=== PATIENT | female | born 1995 | race Caucasian/White ===

== ENCOUNTER 2016-09-12 01:32 | Outpatient (CLI) | payer OTHER ==
[~2016-09-12] VITALS: Ht 160 cm; Wt 73.0 kg
[~2016-09-12 01:32] MED LIST: PRENTAB65 PO; SODI1TAB PO
[2016-09-12 02:31] VITALS: Ht 160 cm; Wt 73.0 kg
[2016-09-12 02:50] LABS: URINE APPEARANCE CLEAR (CLEAR); URINE BILIRUBIN NEG (NEG); URINE COLOR YELLOW; URINE EPITHELIAL CELL AUTO 0-5 /lpf (0-5); URINE NITRITE NEG (NEG); URINE PH 6.5 (4.5-7.5); UROBILINOGEN NEG (NEG); ZZUR CULT IF INDIC CLEAN CATCH NO
[2016-09-12 02:56] LABS: MANUAL MICROSCOPIC REQUIRED? NO; REVIEW REQ? NO
--- NOTE | 2016-09-21 06:31 | EDITING REQUIRED CODING QUERY ---
DIAGNOSIS NEEDED To promote full compliance with coding requirements relating to patient care, physician participation is requested in all cases of windows security analyst uncertainty. Please assist us with the question(s) below: Coding Question: The patient received care in labor and delivery on 09/12/16 as noted within the record. Please document the diagnosis that is being addressed by the medication/treatment. Provider Response: DIAGNOSIS: Thank you for your assistance, Elizabeth Mahmood - Parent Aide
== END 2016-09-12 03:40 | disposition home or self-care (01) ==
LOC: C.OPB 01:32 → C.LD 01:32 → C.OPB 03:40
PROVIDERS: ATTEND Obstetrics & Gynecology
DX: O26.893 Other specified pregnancy related conditions, third trimester (principal); R10.2 Pelvic and perineal pain; Z3A.34 34 weeks gestation of pregnancy

== ENCOUNTER 2016-10-26 12:11 | Outpatient (CLI) | payer OTHER ==
[~2016-10-26] VITALS: Ht 160 cm; Wt 78.2 kg
[2016-10-26 12:30] VITALS: Ht 160 cm; Wt 78.2 kg
--- NOTE | 2016-10-26 14:26 | Progress Note ---
Progress Note Date of Service Oct 26, 2016. Progress Note Pt is a 21yo at 40.6 weeks gestation Pt has hx of Ventricular Tachycardia and see Dr Westbrook. Pt had an appt with sourcing engineer for recommendation but was rescheduled and so pt never saw cardiology Today she is here for labor induction sat 40.6 weeks and a phone call made to cardiology recommends she have cardiac monitoring thru labor. we are unable to provide that monitoring here so she is scheduled to have her induction tomorrow at [facility] discussed recommendation with pt and family arrangement is made for her and spouse tostay overnight at the [facility] because of an impending snow storm FHR; Cat1
--- NOTE | 2016-10-26 14:27 | Discharge Instructions ---
Discharge Instructions Date of Service Oct 26, 2016. Admission Reason for Admission: NST Discharge Discharge Diagnosis / Problem: pregnacy Discharge Goals Goal(s): Continuing OB care Activity Recommendations Activity Limitations: as noted below SPECIAL CARE INSTRUCTIONS: Call Doctor if: * Regular contractions every 5 minutes or greater than contractions in one hour. * Bleeding * Water breaks or is leaking * Decreased movement * Fever >100.4 degrees F * Pain not relieved by routine measures or pain medication ordered. FOLLOW UP VISIT: Return to Labor and Delivery on for /call for appointment time . Follow-up Visit with: When: . Current Hospital Diet Patient's current hospital diet: Discharge Diet Recommended Diet: Regular Diet Pending Studies Studies pending at discharge: no Medical Emergencies . Who to Call and When: Medical Emergencies: If at any time you feel your situation is an emergency, please call 911 immediately. . Non-Emergent Contact Non-Emergency issues call your: Specialist . . "Provider Documentation" section prepared by Reese Mares. VTE Core Measure Inpt VTE Proph given/why not?: Treatment not indicated
== END 2016-10-26 14:20 | disposition home or self-care (01) ==
LOC: C.LD 12:11 → UNDOADMIN 12:11 → C.LD 12:11 → C.OPB 12:11 → EDSTATUS 13:40 → C.OPB 14:20
PROVIDERS: ATTEND Obstetrics & Gynecology
DX: O99.411 Diseases of the circulatory system complicating pregnancy, first trimester (principal); I47.2 Ventricular tachycardia; Z3A.40 40 weeks gestation of pregnancy

== ENCOUNTER 2017-09-14 07:51 | Emergency (ER) | payer OTHER ==
[~2017-09-14] VITALS: Ht 160 cm; Wt 66.0 kg
[2017-09-14 07:58] VITALS: Ht 160 cm; Wt 66.0 kg
[2017-09-14] MEDS ORDERED: IBUPROFEN 600 MG TAB PO STA (09:00)
[2017-09-14] MEDS ORDERED: SODIUM CHLORIDE 0.9% 1000ML 1,000 ML IV STA (09:00)
--- NOTE | 2017-09-14 09:41 | DIAGNOSTIC IMAGING REPORT ---
CHEST ONE VIEW PORTABLE CLINICAL HISTORY: Fever and chest pain. COMPARISON STUDY: Chest radiograph May 14, 2017. FINDINGS: Lung volumes are normal. No pneumothorax or pleural effusion is noted. Pulmonary vascularity is normal. Cardiac size is normal. Mediastinal contours are normal. IMPRESSION: No acute cardiopulmonary findings. Electronically signed by: Asim Soni M.D. 09/14/2017 9:40 AM Dictated Date/Time: 09/14/2017 9:40 AM
[2017-09-14 09:44] LABS: HEMATOCRIT 35.1 % (37-47); HEMOGLOBIN 12.2 g/dL (12.0-16.0); IG# 0.04 K/uL (0.00-0.02); LYMPH ABS # 0.62 K/uL (1.2-3.4); MEAN CELL VOLUME 88.4 fL (80-100); MEAN CORPUSCULAR HEMOGLOBIN 30.7 pg (25-34); MEAN CORPUSCULAR HGB CONC 34.8 g/dl (32-36); MEAN PLATELET VOLUME 10.8 fL (7.4-10.4); MONO % 4.4 %; MONO ABS # 0.68 K/uL (0.11-0.59); NEUT % 91.3 %; NEUT ABS # 14.26 K/uL (1.4-6.5); PLATELET COUNT 240 K/uL (130-400); RED CELL DISTRIBUTION WIDTH CV 15.2 % (11.5-14.5); RED CELL DISTRIBUTION WIDTH SD 49.8 fL (36.4-46.3)
[2017-09-14 10:01] LABS: CALCIUM 8.9 mg/dl (8.5-10.1); CREATININE 0.65 mg/dl (0.60-1.20); POTASSIUM 3.5 mmol/L (3.5-5.1)
[2017-09-14 10:13] LABS: INFLUENZA B ANTIGEN Neg for Influ B (NEG)
[2017-09-14 10:45] VITALS: TEMP 37.1
--- NOTE | 2017-09-14 11:01 | EMERGENCY ROOM VISIT NOTE ---
History Report prepared by Shilpa: Fausto Castro Under the Supervision of: Dr. Nnio Holland D.O. First contact with patient: 08:52 Chief Complaint: ILLNESS Stated Complaint: CHEST PAIN/SYNCOPE History of Present Illness The patient is a 22 year old female who presents to the Emergency Room with complaints of weakness that began this morning. She has a past medical history of ventricular tachycardia that occurred 11 years ago. She received a heart catheterization for possible ablation without further treatment secondary to it never recurring. Earlier this week, the patient began to experience a non- productive cough with intermittent sneezing. Her symptoms then progressed into a fever with body aches. 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 She states she "collapsed" because of her weakness. She did not injure herself in anyway or hit her head. She is currently nauseated and mildly dizzy. She was given Zofran via EMS. She denies any vomiting, abdominal pain, or numbness. She received a echocardiogram earlier this month that was negative. Source of History: patient Onset: this morning Position: other (global) Symptom Intensity: moderate Quality: other (generalized weakness) Timing: constant Associated Symptoms: + fevers, + sorethroat, + cough, + nausea, No LOC, No vomiting, No abdominal pain, No numbness Review of Systems See HPI for pertinent positives & negatives. A total of 10 systems reviewed and were otherwise negative. Past Medical & Surgical Medical Problems: (1) Abdominal pain (2) (3) Ventricular tachycardia (paroxysmal) (4) Vomiting Surgical Problems: (1) No history of previous surgery Family History Diabetes mellitus MOTHER FH: heart disease FATHER Hypertension FATHER MOTHER Social History Smoking Status: Never Smoker Alcohol Use: none Drug Use: none Housing Status: lives with significant other Occupation Status: student Current/Historical Medications No Active Prescriptions or Reported Meds Allergies Coded Allergies: Tramadol (Verified Adverse Reaction, Intermediate, nausea, 09/14/17) Physical Exam Vital Signs Date Time Temp Pulse Resp B/P (MAP) Pulse Ox O2 Delivery O2 Flow Rate FiO2 09/14/17 11:08 96 09/14/17 10:45 37.1 96 20 129/67 98 Room Air 09/14/17 09:17 115 16 110/69 97 Room Air 09/14/17 07:58 38.1 115 16 137/79 97 Room Air 09/14/17 07:58 127 Physical Exam CONSTITUTIONAL/VITAL SIGNS: Reviewed / noted above. GENERAL: Non-toxic in appearance. INTEGUMENTARY: Warm, dry, and [place]. HEAD: Normocephalic. EYES: without scleral icterus or trauma. ENT/OROPHARYNX: clear and moist. LYMPHADENOPATHY/NECK: Is supple without lymphadenopathy or meningismus. RESPIRATORY: Lungs clear and equal. CARDIOVASCULAR: Tachycardic rate with a regular rhythm. GI/ABDOMEN: Soft and nontender. No organomegaly or pulsatile mass. No rebound or guarding. Normal bowel sounds. EXTREMITIES: Warm and well perfused. BACK: No CVA tenderness. NEUROLOGICAL: Intact without focal deficits. PSYCHIATRIC: normal affect. MUSCULOSKELETAL: Normally developed with good muscle tone. Medical Decision & Procedures ER Provider Diagnostic Interpretation: Radiology results as stated below per my review and radiologist interpretation: CHEST ONE VIEW PORTABLE CLINICAL HISTORY: Fever and chest pain. COMPARISON STUDY: Chest radiograph May 14, 2017. FINDINGS: Lung volumes are normal. No pneumothorax or pleural effusion is noted. Pulmonary vascularity is normal. Cardiac size is normal. Mediastinal contours are normal. IMPRESSION: No acute cardiopulmonary findings. Electronically signed by: Asim Soni M.D. 09/14/2017 9:40 AM Dictated Date/Time: 09/14/2017 9:40 AM Laboratory Results 09/14/17 09:33 Red Blood Count 3.97, Mean Corpuscular Volume 88.4, Mean Corpuscular Hemoglobin 30.7, Mean Corpuscular Hemoglobin Concent 34.8, Mean Platelet Volume 10.8, Neutrophils (%) (Auto) 91.3, Lymphocytes (%) (Auto) 4.0, Monocytes (%) (Auto) 4.4, Eosinophils (%) (Auto) 0.0, Basophils (%) (Auto) 0.0, Neutrophils # (Auto) 14.26, Lymphocytes # (Auto) 0.62, Monocytes # (Auto) 0.68, Eosinophils # (Auto) 0.00, Basophils # (Auto) 0.00 09/14/17 09:33 Test 09/14/17 09:15 09/14/17 09:33 Influenza Type A Antigen Neg for Influ A (NEG) Influenza Type B Antigen Neg for Influ B (NEG) White Blood Count 15.60 K/uL (4.8-10.8) Red Blood Count 3.97 M/uL (4.2-5.4) Hemoglobin 12.2 g/dL (12.0-16.0) Hematocrit 35.1 % (37-47) Mean Corpuscular Volume 88.4 fL (80-100) Mean Corpuscular Hemoglobin 30.7 pg (25-34) Mean Corpuscular Hemoglobin Concent 34.8 g/dl (32-36) Platelet Count 240 K/uL (130-400) Mean Platelet Volume 10.8 fL (7.4-10.4) Neutrophils (%) (Auto) 91.3 % Lymphocytes (%) (Auto) 4.0 % Monocytes (%) (Auto) 4.4 % Eosinophils (%) (Auto) 0.0 % Basophils (%) (Auto) 0.0 % Neutrophils # (Auto) 14.26 K/uL (1.4-6.5) Lymphocytes # (Auto) 0.62 K/uL (1.2-3.4) Monocytes # (Auto) 0.68 K/uL (0.11-0.59) Eosinophils # (Auto) 0.00 K/uL (0-0.5) Basophils # (Auto) 0.00 K/uL (0-0.2) RDW Standard Deviation 49.8 fL (36.4-46.3) RDW Coefficient of Variation 15.2 % (11.5-14.5) Immature Granulocyte % (Auto) 0.3 % Immature Granulocyte # (Auto) 0.04 K/uL (0.00-0.02) Anion Gap 7.0 mmol/L (3-11) Est Creatinine Clear Calc Drug Dose 121.8 ml/min Estimated GFR () 144.0 Estimated GFR (Non- 124.3 BUN/Creatinine Ratio 15.1 (10-20) Calcium Level 8.9 mg/dl (8.5-10.1) Laboratory results as stated above per my review. Medications Administered Medications (Trade) Dose Ordered Sig/Shiva Route Start Time Stop Time Status Last Admin Dose Admin Sodium Chloride 1,000 ml @ 999 mls/hr Q1H1M STAT IV 09/14/17 09:00 09/14/17 10:00 DC 09/14/17 09:00 999 MLS/HR Ibuprofen (Motrin Tab) 600 mg NOW STAT PO 09/14/17 09:00 09/14/17 09:03 DC 09/14/17 09:25 600 MG ECG Indication: nausea Rate (beats per minute): 119 Rhythm: sinus tachycardia Findings: no acute ischemic change, no ectopy Change: ECG interpreted by me ED Course 0852: Previous medical records were reviewed. The patient was evaluated in room B6. A complete history and physical examination was performed. 0900: Ordered Motrin Tab 600 mg PO, Sodium Chloride 1000 ml @ 999 mls/hr IV 1105: On reevaluation, the patient is resting. I discussed the results and findings with the patient. She verbalized agreement of the treatment plan. She was discharged home. Medical Decision Differential includes viral illness, influenza, streptococcal pharyngitis, meningitis, pneumonia, sinusitis, UTI, pyelonephritis, and otitis media. This is a 22-year-old female who presents to the ED with a chief complaint of nausea, dizziness, weakness, body aches, cough,sneezing, sore throat and fever for the past 24-36 hours. The patient has a fever here today 38.1. She is tachycardic with a heart rate of 115. EKG shows a sinus tach. White blood cell count is 15.6. PRP was normal. Chest x-ray did not show acute disease and a flu swab was negative. The patient's symptoms are consistent with a viral syndrome. She was given ibuprofen here as well as IV fluids. 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 Medication Reconcilliation Current Medication List: was personally reviewed by me Blood Pressure Screening Patient's blood pressure: Normal blood pressure Blood pressure disposition: Did not require urgent referral Impression Primary Impression: Flu-like symptoms Scribe Attestation The scribe's documentation has been prepared under my direction and personally reviewed by me in its entirety. I confirm that the note above accurately reflects all work, treatment, procedures, and medical decision making performed by me. Departure Information Dispostion Home / Self-Care Prescriptions No Active Prescriptions or Reported Meds Referrals Joselin Valdez M.D. (PCP) Forms HOME CARE DOCUMENTATION FORM, IMPORTANT VISIT INFORMATION, WORK / SCHOOL INSTRUCTIONS Patient Instructions My [facility] Additional Instructions Drink plenty of fluids. Get plenty of rest. Take [id number] cold and flu medicine for symptoms. Follow-up with your doctor for further care and evaluation in 1-2 days. Return to the emergency department for worsening or new symptoms or any concerns. You have been examined and treated today on an emergency basis only. This is not a substitute for, or an effort to provide, complete comprehensive medical care. It is impossible to recognize and treat all injuries or illnesses in a single emergency department visit. It is therefore important that you follow up closely with your doctor. Call as soon as possible for an appointment.
[2017-09-14 11:08] VITALS: PULSE 96
[2017-09-14 11:36] VITALS: BP 113/66; O2SAT 97
== END 2017-09-14 11:37 | disposition home or self-care (01) ==
LOC: EDBD 07:51 → C.EDB 07:52
DX: R69 Illness, unspecified (principal); I47.2 Ventricular tachycardia; Z83.3 Family history of diabetes mellitus; Z82.49 Family history of ischemic heart disease and other diseases of the circulatory system

== ENCOUNTER 2017-12-17 07:57 | Emergency (ER) | payer OTHER ==
[~2017-12-17] VITALS: Ht 160 cm; Wt 60.1 kg
[2017-12-17 08:02] VITALS: TEMP 36.9; Ht 160 cm; Wt 60.1 kg
[2017-12-17] MEDS ORDERED: SODIUM CHLORIDE 0.9% 1000ML 1,000 ML IV STA (08:13)
--- NOTE | 2017-12-17 08:39 | DIAGNOSTIC IMAGING REPORT ---
CHEST ONE VIEW PORTABLE CLINICAL HISTORY: 22 years-old Female presenting with CHEST PAIN. TECHNIQUE: PA and lateral views of the chest were obtained. COMPARISON: 09/14/2017. FINDINGS: Cardiomediastinal silhouette normal. Bronchial wall thickening now evident. No focal opacity. No large effusion or pneumothorax. Osseous structures normal. Upper abdomen normal. IMPRESSION: Bronchial wall thickening suggests reactive airways disease or viral bronchiolitis. No focal infiltrate to suggest pneumonia. Electronically signed by: Raimundo Warner M.D. 12/17/2017 8:38 AM Dictated Date/Time: 12/17/2017 8:37 AM
[2017-12-17] MEDS ORDERED: SODIUM CHLORIDE PO ×2 (08:49→09:50)
[2017-12-17] MEDS ORDERED: ATEN-173 PO (08:49)
[2017-12-17 08:52] LABS: BASO % 0.2 %; BASO ABS # 0.02 K/uL (0-0.2); EOS % 1.3 %; EOS ABS # 0.12 K/uL (0-0.5); HEMATOCRIT 35.8 % (37-47); HEMOGLOBIN 12.6 g/dL (12.0-16.0); IG# 0.01 K/uL (0.00-0.02); LYMPH % 18.9 %; LYMPH ABS # 1.73 K/uL (1.2-3.4); MEAN CELL VOLUME 87.5 fL (80-100); MEAN CORPUSCULAR HEMOGLOBIN 30.8 pg (25-34); MEAN CORPUSCULAR HGB CONC 35.2 g/dl (32-36); MEAN PLATELET VOLUME 10.7 fL (7.4-10.4); MONO % 6.4 %; MONO ABS # 0.59 K/uL (0.11-0.59); NEUT % 73.1 %; NEUT ABS # 6.68 K/uL (1.4-6.5); PLATELET COUNT 266 K/uL (130-400); RED CELL DISTRIBUTION WIDTH CV 14.6 % (11.5-14.5); WHITE BLOOD COUNT 9.15 K/uL (4.8-10.8)
[2017-12-17 09:00] LABS: ALBUMIN 4.2 gm/dl (3.4-5.0); ALT/SGPT 16 U/L (12-78); AST/SGOT 14 U/L (15-37); BLOOD UREA NITROGEN 14 mg/dl (7-18); CALCIUM 8.7 mg/dl (8.5-10.1); CARBON DIOXIDE 20 mmol/L (21-32); CREATININE 0.62 mg/dl (0.60-1.20); GLUCOSE 86 mg/dl (70-99); LIPASE 135 U/L (73-393); POTASSIUM 3.7 mmol/L (3.5-5.1); SODIUM 138 mmol/L (136-145)
[2017-12-17 09:03] LABS: ALKALINE PHOSPHATASE 59 U/L (45-117); TOTAL PROTEIN 8.3 gm/dl (6.4-8.2)
--- NOTE | 2017-12-17 09:04 | EMERGENCY ROOM VISIT NOTE ---
History Report prepared by Shilpa: Alexis Jacobs Under the Supervision of: Dr. Bladimir Estes M.D. First contact with patient: 08:05 Chief Complaint: PALPITATIONS Stated Complaint: HEART PALPITATIONS, DIZZINESS & WEAKNESS History of Present Illness The patient is a 22 year old female who presents to the Emergency Room with complaints of constant heart palpitations beginning shortly prior to arrival. She currently complains of dizziness, nausea and generalized weakness. The patient states that all of her symptoms began together while driving 1.5 hours ago. She initially had chest pain for about five minutes, but it has since resolved. She states that she felt normal this morning. Nothing has improved her symptoms. The patient denies leg pain or swelling, or LOC. She has a history of V-tach (x11 years) for which she follows with Dr. Alvarez of Cardiology. She notes that she was noted to be anemic a few weeks ago. The patient has one child at home (1 year old), but is not currently breast feeding. Source of History: patient Onset: 1.5 hours ago Quality: other (heart palpitations) Timing: constant Modifying Factors (Relieving): other (none) Associated Symptoms: + chest pain (resolved), + nausea, + weakness ( generalized), No LOC Note: Negative: leg pain/swelling. Positive: dizziness. Review of Systems See HPI for pertinent positives & negatives. A total of 10 systems reviewed and were otherwise negative. Past Medical & Surgical Medical Problems: (1) Abdominal pain (2) (3) Ventricular tachycardia (paroxysmal) (4) Vomiting Surgical Problems: (1) No history of previous surgery Old medical records were reviewed. Nurse's notes were reviewed and I agree with. Family History Diabetes mellitus MOTHER FH: heart disease FATHER Hypertension FATHER MOTHER Social History Smoking Status: Never Smoker Alcohol Use: none Drug Use: none Housing Status: lives with significant other Occupation Status: student Current/Historical Medications Scheduled Atenolol (Tenormin), 25 MG PO BID [Sodium Chloride], 50 MG PO DAILY Allergies Coded Allergies: Tramadol (Verified Adverse Reaction, Intermediate, nausea, 09/14/17) Physical Exam Vital Signs Date Time Temp Pulse Resp B/P (MAP) Pulse Ox O2 Delivery O2 Flow Rate FiO2 12/17/17 10:15 76 18 117/76 98 Room Air 12/17/17 08:48 95 Room Air 12/17/17 08:40 79 12/17/17 08:02 36.9 91 20 135/75 98 Room Air Physical Exam General: Non-ill appearing young female in no acute distress. HEENT: Normal cephalic atraumatic. Pupils are equal round and reactive to light. Extraocular movements are intact. Oropharynx is pink with moist mucous membranes. No swelling of the mouth lips or tongue. Neck: Supple with a midline trachea. No meningeal signs or stiffness, no JVD or bruits. No Stridor. Chest: Clear to auscultation bilaterally. No wheezes or rhonchi. No increased work of breathing. Heart: regular rate and rhythm. Abdomen: Soft nontender, nondistended without rebound guarding or rigidity. Extremities: No cyanosis clubbing or edema. No calf tenderness or assymetry Spine/Back. Non tender to palpation. No CVA tenderness Skin: Good turgor without rashes. Neurologic exam: Cranial nerves two through 12 are intact. Motor and sensation are intact and symmetrical throughout. Medical Decision & Procedures ER Provider Diagnostic Interpretation: Radiology results as stated below per my review and radiologist interpretation: CHEST ONE VIEW PORTABLE FINDINGS: Cardiomediastinal silhouette normal. Bronchial wall thickening now evident. No focal opacity. No large effusion or pneumothorax. Osseous structures normal. Upper abdomen normal. IMPRESSION: Bronchial wall thickening suggests reactive airways disease or viral bronchiolitis. No focal infiltrate to suggest pneumonia. Electronically signed by: Raimundo Warner M.D. 12/17/2017 8:38 AM Laboratory Results 12/17/17 08:35 Red Blood Count 4.09, Mean Corpuscular Volume 87.5, Mean Corpuscular Hemoglobin 30.8, Mean Corpuscular Hemoglobin Concent 35.2, Mean Platelet Volume 10.7, Neutrophils (%) (Auto) 73.1, Lymphocytes (%) (Auto) 18.9, Monocytes (%) (Auto) 6.4, Eosinophils (%) (Auto) 1.3, Basophils (%) (Auto) 0.2, Neutrophils # (Auto) 6.68, Lymphocytes # (Auto) 1.73, Monocytes # (Auto) 0.59, Eosinophils # (Auto) 0.12, Basophils # (Auto) 0.02 12/17/17 08:35 Test 12/17/17 08:35 12/17/17 08:39 White Blood Count 9.15 K/uL (4.8-10.8) Red Blood Count 4.09 M/uL (4.2-5.4) Hemoglobin 12.6 g/dL (12.0-16.0) Hematocrit 35.8 % (37-47) Mean Corpuscular Volume 87.5 fL (80-100) Mean Corpuscular Hemoglobin 30.8 pg (25-34) Mean Corpuscular Hemoglobin Concent 35.2 g/dl (32-36) Platelet Count 266 K/uL (130-400) Mean Platelet Volume 10.7 fL (7.4-10.4) Neutrophils (%) (Auto) 73.1 % Lymphocytes (%) (Auto) 18.9 % Monocytes (%) (Auto) 6.4 % Eosinophils (%) (Auto) 1.3 % Basophils (%) (Auto) 0.2 % Neutrophils # (Auto) 6.68 K/uL (1.4-6.5) Lymphocytes # (Auto) 1.73 K/uL (1.2-3.4) Monocytes # (Auto) 0.59 K/uL (0.11-0.59) Eosinophils # (Auto) 0.12 K/uL (0-0.5) Basophils # (Auto) 0.02 K/uL (0-0.2) RDW Standard Deviation 47.0 fL (36.4-46.3) RDW Coefficient of Variation 14.6 % (11.5-14.5) Immature Granulocyte % (Auto) 0.1 % Immature Granulocyte # (Auto) 0.01 K/uL (0.00-0.02) Anion Gap 9.0 mmol/L (3-11) Est Creatinine Clear Calc Drug Dose 115.7 ml/min Estimated GFR () 146.3 Estimated GFR (Non- 126.2 BUN/Creatinine Ratio 22.3 (10-20) Calcium Level 8.7 mg/dl (8.5-10.1) Magnesium Level 2.1 mg/dl (1.8-2.4) Total Bilirubin 0.4 mg/dl (0.2-1) Direct Bilirubin < 0.1 mg/dl (0-0.2) Aspartate Amino Transf (AST/SGOT) 14 U/L (15-37) Alanine Aminotransferase (ALT/SGPT) 16 U/L (12-78) Alkaline Phosphatase 59 U/L (45-117) Total Protein 8.3 gm/dl (6.4-8.2) Albumin 4.2 gm/dl (3.4-5.0) Lipase 135 U/L (73-393) Human Chorionic Gonadotropin, Qual NEG (NEG) Bedside Troponin I < 0.030 ng/ml (0-0.045) Laboratory studies as stated above per my review. Medications Administered Medications (Trade) Dose Ordered Sig/Shiva Route Start Time Stop Time Status Last Admin Dose Admin Sodium Chloride 1,000 ml @ 999 mls/hr Q1H1M STAT IV 12/17/17 08:13 12/17/17 09:13 DC 12/17/17 08:13 999 MLS/HR ECG Per My Interpretation Indication: palpitations Rate (beats per minute): 70 Findings: other (Normal intervals. No ST elevations. No PVCs. ) Comparison ECG Date: Sep 14, 2017 Change: Normal sinus rhythm has replaced sinus tachycardia. ED Course 0807: Past medical records reviewed. The patient was evaluated in room B12B, and a complete history and physical examination were performed. 0813: Ordered Sodium Chloride 1000 ml @ 999 mls/hr IV. 0909: I reassessed the patient. She is asymptomatic and is asking for a work excuse. 1030: Upon reevaluation, the patient is feeling much better. She would like to go home. I discussed the results and treatment plan with her. She verbalized agreement of the treatment plan. The patient was discharged home. Medical Decision Differentials include, but are not limited to; palpitations, arrhythmia, ACS, anxiety, PE, and electrolyte or metabolic abnormality. This patient comes in as described above. She was placed in room B12. She had an episode while driving where she felt like she has felt lightheaded chest pain and palpitations. She does have a history of nonsustained V. tach since she was 11 years old she is on a beta-prakash but does not not had a defibrillator or other antiarrhythmics. She looks well and has stable vital signs upon arrival and is non-tachycardic. EKG shows normal sinus rhythm without any ectopy or arrhythmia or ischemic changes. IV access established, multiple blood testing was obtained. Chest x-ray was obtained as well. She was reassessed frequently and is asymptomatic at present. Her workup here was unremarkable. She has nothing to suggest ventricular arrhythmia present and chest x-ray was unremarkable there is no evidence to suggest congestive heart failure pneumonia or pneumothorax. She has no elevation of her cardiac biomarkers. She is resting comfortably and would like to go home. I have reviewed her records. She apparently has been evaluated by Dr. Mosqueda from electrophysiology at [facility] previously and had no ventricular arrhythmias that were induced and was started on the beta-prakash. She had a 45 day MCOT a couple years ago and did have multiple salvos of nonsustained V. tach however they were not associated with symptoms. I have discussed the case with the [facility] fish frog or oyster farmer Dr. Bernal and he discussed it with and they feel that she is safe to go home and they will follow up with her in the office and arrange monitoring. The patient was given a couple days off of work and was encouraged to return if: Recurrence of symptoms, worsening of symptoms, chest pain, shortness of breath, any new problems or concerns. They are happy to plan and discharged home. Medication Reconcilliation Current Medication List: was personally reviewed by me Blood Pressure Screening Patient's blood pressure: Elevated blood pressure Blood pressure disposition: Elevated BP felt to be situational Consults Time Called: 908 Consulting Physician: Dr. Bernal - Cardiology Returned Call: [phone] Discussed the patient's case with Dr. Bernal. He will speak with Dr. Alvarez. 0957: I spoke with Dr. Bernal again. He has spoken with Dr. Alvarez. They feel that the patient is safe for discharge with outpatient cardiology follow-up. Impression Primary Impression: Palpitations Additional Impression: Chest pain Scribe Attestation The scribe's documentation has been prepared under my direction and personally reviewed by me in its entirety. I confirm that the note above accurately reflects all work, treatment, procedures, and medical decision making performed by me. Departure Information Dispostion Home / Self-Care Referrals Joselin Valdez M.D. (PCP) Forms HOME CARE DOCUMENTATION FORM, IMPORTANT VISIT INFORMATION, WORK / SCHOOL INSTRUCTIONS Patient Instructions My [facility] Additional Instructions Rest. Drink plenty of fluids. Return if: Recurrence of symptoms, chest pain, lightheadedness or dizziness, any new problems or concerns Follow-up with Dr. Alvarez's office the next 1-2 days for recheck. Problem Qualifiers
[2017-12-17 10:15] VITALS: BP 117/76; PULSE 76; O2SAT 98
== END 2017-12-17 10:34 | disposition home or self-care (01) ==
LOC: C.EDB 07:59
DX: R00.2 Palpitations (principal); I47.2 Ventricular tachycardia; Z82.49 Family history of ischemic heart disease and other diseases of the circulatory system; Z88.5 Allergy status to narcotic agent

== ENCOUNTER 2018-01-08 15:36 | Emergency (ER) | payer OTHER ==
[~2018-01-08] VITALS: Ht 160 cm; Wt 60.4 kg
[~2018-01-08 15:36] MED LIST changes: +ATEN-173 PO; -PRENTAB65 PO; -SODI1TAB PO; +SODIUM CHLORIDE PO
[2018-01-08 15:39] VITALS: Ht 160 cm; Wt 60.4 kg
[2018-01-08] MEDS ORDERED: ONDANSETRON INJ 2 MG/ML 2 ML VIAL IV STA (15:59)
[2018-01-08] MEDS ORDERED: SODIUM CHLORIDE 0.9% 1000ML 1,000 ML IV ONE (16:00)
[2018-01-08] MEDS ORDERED: MoRPHine SULFATE 4 MG/ML 1 ML CARP\\VIAL IV PRN (16:00)
--- NOTE | 2018-01-08 16:23 | EMERGENCY ROOM VISIT NOTE ---
History First contact with patient: 15:43 Chief Complaint: VOMITING Stated Complaint: VOMITING, SEVERE PAIN IN RT SIDE OF STOMACH Nursing Triage Summary: see triage note History of Present Illness The patient is a 22 year old female who presents to the Emergency Room with complaints of nausea, vomiting and fever for the last 3 days. The patient had a fever of 102F 2 days ago. She has vomited approximately 4 times each day. She says that it is "pink" in color. She also developed abdominal pain in the right upper abdomen radiating to her back yesterday. She describes it as a constant, dull ache. She denies any urinary symptoms. She has tried Tylenol for the pain with no relief. She also complains of constipation with her last bowel movement being 5 days ago. She admits to having intermittent problems with constipation. Review of Systems 10 system review performed and negative unless noted in HPI or below Past Medical/Surgical History Medical Problems: (1) Abdominal pain (2) (3) Ventricular tachycardia (paroxysmal) (4) Vomiting Surgical Problems: (1) No history of previous surgery Family History Diabetes mellitus MOTHER FH: heart disease FATHER Hypertension FATHER MOTHER Social History Smoking Status: Never Smoker Alcohol Use: none Drug Use: none Housing Status: lives with significant other Occupation Status: student Current/Historical Medications Scheduled Atenolol (Tenormin), 25 MG PO BID Ondasetron Odt (Zofran Odt), 4 MG SL Q6H [Sodium Chloride], 50 MG PO DAILY Scheduled PRN Hydrocodone/Acetaminophen 5MG/325MG ([place] 5MG/325MG), 1-2 TABLET PO Q4H PRN for Pain Physical Exam Vital Signs Date Time Temp Pulse Resp B/P (MAP) Pulse Ox O2 Delivery O2 Flow Rate FiO2 01/08/18 20:11 36.7 64 20 135/74 95 01/08/18 19:45 135/74 01/08/18 17:45 64 20 134/74 95 01/08/18 15:39 36.7 87 18 121/70 100 Room Air Physical Exam VITALS: Vitals are noted on the nurse's note and reviewed by myself. Vital signs stable. GENERAL: 22-year-old female, in no acute distress, nondiaphoretic, well- developed well-nourished. SKIN: The skin was without rashes, erythema, edema, or bruising. HEAD: Normocephalic atraumatic. EYES: Conjunctivae without injection, sclerae without icterus. Extraocular movements intact. MOUTH: Mucous membranes slightly dry NECK: Supple without nuchal rigidity. . No JVD. HEART: Regular rate and rhythm without murmurs gallops or rubs. LUNGS: Clear to auscultation bilaterally without wheezes, rales or rhonchi. No accessory muscle use. ABDOMEN: Positive bowel sounds x 4.Soft, nontender, without organomegaly. No guarding or rebound tenderness.Positive right-sided CVA tenderness. MUSCULOSKELETAL: No muscle atrophy, erythema, or edema noted. Full range of motion in all extremities. No tenderness to palpation. Normal gait. Strength 5/5 throughout. NEURO: Patient was alert and oriented to person place and time. Normal sensation to touch. No focal neurological deficits. Medical Decision & Procedures ER Provider Diagnostic Interpretation: Gallbladder ultrasound IMPRESSION: Trace gallbladder sludge. No cholelithiasis or biliary ductal dilatation. Electronically signed by: Raimundo Warner M.D. 01/08/2018 5:27 PM Dictated Date/Time: 01/08/2018 5:26 PM KUB IMPRESSION: 1. Nonobstructive bowel gas pattern. 2. Moderate stool volume about the right hemicolon. Electronically signed by: Aram Matute M.D. 01/08/2018 4:52 PM Dictated Date/Time: 01/08/2018 4:45 PM The status of this report is Signed. CT abdomen and pelvis with IV contrast IMPRESSION: 1. No acute intra-abdominal pathology. 2. Trace free fluid in the pelvis is likely physiologic. Electronically signed by: Raimundo Warner M.D. 01/08/2018 7:42 PM Dictated Date/Time: 01/08/2018 7:37 PM The status of this report is Signed. Draft = Not yet reviewed or approved by Radiologist. Signed = Reviewed and approved by Radiologist. <AttendingPhy></AttendingPhy> <FamilyPhy>Joselin Valdez M.D.</FamilyPhy> < PrimaryPhy>Joselin Valdez M.D.</PrimaryPhy> <UnitNumber>[id number]</UnitNumber > <VisitNumber>[id number]</VisitNumber> <PatientName>BIRDIE,KENA N</ PatientName> <DateOfBirth>1995</DateOfBirth> <Location>[facility]</Location> < ServiceDate>01/08/18</ServiceDate> <MNE>ESINDI</MNE> <OrderingPhy>Rene Pebbles Sherif SANCHEZ Laboratory Results 01/08/18 16:30 Red Blood Count 4.17, Mean Corpuscular Volume 87.5, Mean Corpuscular Hemoglobin 30.2, Mean Corpuscular Hemoglobin Concent 34.5, Mean Platelet Volume 10.9, Neutrophils (%) (Auto) 64.9, Lymphocytes (%) (Auto) 28.8, Monocytes (%) (Auto) 5.0, Eosinophils (%) (Auto) 0.9, Basophils (%) (Auto) 0.2, Neutrophils # (Auto) 5.68, Lymphocytes # (Auto) 2.52, Monocytes # (Auto) 0.44, Eosinophils # (Auto) 0.08, Basophils # (Auto) 0.02 01/08/18 16:30 Test 01/08/18 16:30 01/08/18 16:38 White Blood Count 8.76 K/uL (4.8-10.8) Red Blood Count 4.17 M/uL (4.2-5.4) Hemoglobin 12.6 g/dL (12.0-16.0) Hematocrit 36.5 % (37-47) Mean Corpuscular Volume 87.5 fL (80-100) Mean Corpuscular Hemoglobin 30.2 pg (25-34) Mean Corpuscular Hemoglobin Concent 34.5 g/dl (32-36) Platelet Count 304 K/uL (130-400) Mean Platelet Volume 10.9 fL (7.4-10.4) Neutrophils (%) (Auto) 64.9 % Lymphocytes (%) (Auto) 28.8 % Monocytes (%) (Auto) 5.0 % Eosinophils (%) (Auto) 0.9 % Basophils (%) (Auto) 0.2 % Neutrophils # (Auto) 5.68 K/uL (1.4-6.5) Lymphocytes # (Auto) 2.52 K/uL (1.2-3.4) Monocytes # (Auto) 0.44 K/uL (0.11-0.59) Eosinophils # (Auto) 0.08 K/uL (0-0.5) Basophils # (Auto) 0.02 K/uL (0-0.2) RDW Standard Deviation 45.6 fL (36.4-46.3) RDW Coefficient of Variation 14.2 % (11.5-14.5) Immature Granulocyte % (Auto) 0.2 % Immature Granulocyte # (Auto) 0.02 K/uL (0.00-0.02) Anion Gap 8.0 mmol/L (3-11) Est Creatinine Clear Calc Drug Dose 99.6 ml/min Estimated GFR () 135.9 Estimated GFR (Non- 117.2 BUN/Creatinine Ratio 17.9 (10-20) Calcium Level 9.0 mg/dl (8.5-10.1) Total Bilirubin 0.3 mg/dl (0.2-1) Aspartate Amino Transf (AST/SGOT) 13 U/L (15-37) Alanine Aminotransferase (ALT/SGPT) 16 U/L (12-78) Alkaline Phosphatase 63 U/L (45-117) Total Protein 7.9 gm/dl (6.4-8.2) Albumin 3.6 gm/dl (3.4-5.0) Globulin 4.3 gm/dl (2.5-4.0) Albumin/Globulin Ratio 0.8 (0.9-2) Lipase 158 U/L (73-393) Urine Color YELLOW Urine Appearance CLOUDY (CLEAR) Urine pH 7.5 (4.5-7.5) Urine Specific [place] 1.021 (1.000-1.030) Urine Protein NEG (NEG) Urine Glucose (UA) NEG (NEG) Urine Ketones NEG (NEG) Urine Occult Blood NEG (NEG) Urine Nitrite NEG (NEG) Urine Bilirubin NEG (NEG) Urine Urobilinogen NEG (NEG) Urine Leukocyte Esterase LARGE (NEG) Urine WBC (Auto) 1-5 /hpf (0-5) Urine RBC (Auto) 0-4 /hpf (0-4) Urine Hyaline Casts (Auto) 1-5 /lpf (0-5) Urine Epithelial Cells (Auto) >30 /lpf (0-5) Urine Bacteria (Auto) 1+ (NEG) Urine Test NEG (NEG) Medications Administered Medications (Trade) Dose Ordered Sig/Shiva Route Start Time Stop Time Status Last Admin Dose Admin Ondansetron HCl (Zofran Inj) 4 mg NOW STAT IV 01/08/18 15:59 01/08/18 16:04 DC 01/08/18 16:39 4 MG Morphine Sulfate (MoRPHine SULFATE INJ) 4 mg Q1H PRN IV 01/08/18 16:00 6 15:59 01/08/18 16:40 4 MG Sodium Chloride 1,000 ml @ 999 mls/hr Q1H1M ONCE IV 01/08/18 16:00 01/08/18 17:00 DC 01/08/18 16:41 999 MLS/HR Ondansetron HCl (ZOFRAN ODT 4MG Home Pack) 1 homepack UD ONCE PO 01/08/18 20:00 01/08/18 20:01 DC 01/08/18 20:11 1 HOMEPACK Acetaminophen/ Hydrocodone Bitart ([place] 5/325mg Home Pack) 1 homepack UD ONCE PO 01/08/18 20:00 01/08/18 20:01 DC 01/08/18 20:11 1 HOMEPACK ED Course Patient was seen and examined Vital signs including blood pressure were reviewed medications list was verified with patient Labs were obtained, and a saline lock was established Morphine 4 mg IV was ordered. She was also ordered Zofran 4 mg IV, and 1 L of normal saline. Imaging was performed and reviewed The case was discussed with my supervising physician. The patient was reassessed. She was more comfortable. We discussed her results. A CT of the abdomen and pelvis with IV contrast was performed and reviewed The results were discussed with the patient. She voiced understanding, was comfortable being discharged home. She was given a home pack of Zofran and [place] I reviewed discharge instructions the patient. They voiced understanding and had no further questions. Medical Decision DIFFERENTIAL DIAGNOSIS: Constipation, gastroenteritis, Hepatitis, cholecystitis , cholangitis, biliary colic, pancreatitis, appendicitis, inguinal hernia, nephrolithiasis, inflammatory bowel disease, mesenteric adenitis, peptic ulcer disease, GERD, gastritis, pancreatitis,, bowel obstruction, splenic infarct, diverticulitis, mesenteric ischemia, metabolic, peritonitis, among others. This patient is a 22-year-old female that presents to the emergency department with fever, vomiting and abdominal pain. She has also been constipated. On exam, she was nontoxic in appearance. She had some CVA tenderness. Her workup reveals no leukocytosis. She is afebrile in the emergency department. Urine appears contaminated. The etiology of her symptoms is unclear. It is possible that she has a viral GI illness versus significant constipation causing her symptoms. The patient was instructed to take MiraLAX until she has a large bowel movement. She was sent home with a short course of Zofran and pain medication. She was also instructed to follow-up closely with her primary care physician for recheck. She agrees to return with worsening symptoms This chart was completed in part utilizing [employer] Voice Recognition software. Attempts were made to minimize the grammatical errors, random word insertions, pronoun errors and incomplete sentences. Any formal questions or concerns about the content, text or information contained within the body of this dictation should be directly addressed to the provider for clarification. Medication Reconcilliation Current Medication List: was personally reviewed by me Blood Pressure Screening Patient's blood pressure: Normal blood pressure Impression Primary Impression: Vomiting Additional Impression: Abdominal pain Departure Information Dispostion Home / Self-Care Condition GOOD Prescriptions Ondasetron Odt (ZOFRAN ODT) 4 Mg Tab 4 MG SL Q6H for Nausea, #15 TAB Prov: Pebbles López PA-C 01/08/18 Hydrocodone/Acetaminophen 5MG/325MG ([place] 5MG/325MG) Tab 1-2 TABLET PO Q4H Y for Pain, #10 TAB For Initial Treatment Prov: Pebbles López PA-C 01/08/18 Referrals Joselin Valdez M.D. (PCP) Patient Instructions My [facility] Additional Instructions You have been evaluated in the emergency department for vomiting and abdominal pain. There were no significant abnormalities with your blood work. Imaging results reveal constipation, which is likely contributing to your symptoms. Please take [id number] MiraLAX 3 times daily until you have a large bowel movement Please take Zofran 1 tab every 6 hours as needed for nausea Please take [place] 1 tab every 4 hours for severe pain only. This medication will make constipation worse. Do not drive or drink alcohol with taking his medication. Please follow a clear liquid diet this evening. This consists of water, broth, Gatorade, etc. if you are feeling better in the morning, you may advance to a bland diet. Please follow-up with your primary care physician within the next 1-2 days for a recheck Do not hesitate to return to the emergency department with any new, worsening or concerning symptoms; especially, worsening pain, persistent fever or vomiting It was a pleasure participating in your care tonight Work Instructions Return To Work: 1 day Problem Qualifiers
[2018-01-08 16:45] LABS: BASO % 0.2 %; BASO ABS # 0.02 K/uL (0-0.2); EOS % 0.9 %; EOS ABS # 0.08 K/uL (0-0.5); HEMATOCRIT 36.5 % (37-47); HEMOGLOBIN 12.6 g/dL (12.0-16.0); IG# 0.02 K/uL (0.00-0.02); LYMPH % 28.8 %; LYMPH ABS # 2.52 K/uL (1.2-3.4); MEAN CELL VOLUME 87.5 fL (80-100); MEAN CORPUSCULAR HEMOGLOBIN 30.2 pg (25-34); MEAN CORPUSCULAR HGB CONC 34.5 g/dl (32-36); MEAN PLATELET VOLUME 10.9 fL (7.4-10.4); MONO ABS # 0.44 K/uL (0.11-0.59); NEUT % 64.9 %; NEUT ABS # 5.68 K/uL (1.4-6.5); PLATELET COUNT 304 K/uL (130-400); RED CELL DISTRIBUTION WIDTH CV 14.2 % (11.5-14.5); RED CELL DISTRIBUTION WIDTH SD 45.6 fL (36.4-46.3); WHITE BLOOD COUNT 8.76 K/uL (4.8-10.8)
--- NOTE | 2018-01-08 16:53 | DIAGNOSTIC IMAGING REPORT ---
KUB HISTORY: Constipation, abdominal pain COMPARISON: CXR 12/17/17. FINDINGS: The bowel gas pattern is non-obstructive. Mild gaseous distention of the stomach. Moderate stool volume about the right hemicolon with mild colonic stool involving the transverse and descending colon. No significant stool volume seen within the rectosigmoid. There is no organomegaly. No renal calculi. No ureteral calculi. No pneumoperitoneum or pneumatosis. No fracture. IMPRESSION: 1. Nonobstructive bowel gas pattern. 2. Moderate stool volume about the right hemicolon. Electronically signed by: Aram Matute M.D. 01/08/2018 4:52 PM Dictated Date/Time: 01/08/2018 4:45 PM
[2018-01-08 17:09] LABS: ALBUMIN 3.6 gm/dl (3.4-5.0); CREATININE 0.72 mg/dl (0.60-1.20); POTASSIUM 3.5 mmol/L (3.5-5.1); TOTAL PROTEIN 7.9 gm/dl (6.4-8.2)
--- NOTE | 2018-01-08 17:29 | DIAGNOSTIC IMAGING REPORT ---
GALLBLADDER-ABD LIMITED CLINICAL HISTORY: 22 years-old Female presenting with Right upper quadrant abdominal pain/vomiting. TECHNIQUE: Real-time grayscale and limited color Doppler ultrasound imaging of the abdomen limited to the right upper quadrant was performed. COMPARISON: 04/01/2015. FINDINGS: Pancreas: Visualized portions of the pancreatic head and body normal. Liver: Normal echogenicity and echotexture. The liver measures 15.9 cm in maximal sagittal dimension. No sonographic evidence of hepatic mass. Main portal vein patent with normal directional flow. Biliary: No intrahepatic biliary ductal dilatation. Common bile duct measures up to 3 mm in diameter. Gallbladder: Trace gallbladder sludge. No evidence of gallstones, gallbladder wall thickening, gallbladder distention, or pericholecystic fluid or inflammatory change. Right kidney: Normal in appearance without convincing evidence of hydronephrosis. Mild pelviectasis. Ascites: None. Other: None. IMPRESSION: Trace gallbladder sludge. No cholelithiasis or biliary ductal dilatation. Electronically signed by: Raimundo Warner M.D. 01/08/2018 5:27 PM Dictated Date/Time: 01/08/2018 5:26 PM
[2018-01-08] MEDS ORDERED: OPTIRAY 320 IV PRN (19:00)
--- NOTE | 2018-01-08 19:43 | DIAGNOSTIC IMAGING REPORT ---
ABD/PELVIS IV CONTRAST ONLY CLINICAL HISTORY: 22 years-old Female presenting with R sided abd pain flank pain vomiting fever. TECHNIQUE: Multidetector CT of the abdomen and pelvis was performed after the administration of intravenous contrast. IV contrast: 93 mL of Optiray 320. A dose lowering technique was used consistent with the principles of ALARA (as low as reasonably achievable). COMPARISON: Ultrasound of the right upper quadrant performed earlier the same day. CT DOSE (mGy.cm): The estimated cumulative dose is 292.00 mGy.cm. FINDINGS: Historic Sites Supervisor topogram: Unremarkable. Lung bases: Minimal basilar opacities, likely atelectasis. Normal heart size. No pericardial or pleural effusion. Liver: Normal morphology. No liver lesion. Trace periportal edema versus trace biliary ductal dilatation. Patent hepatic vasculature. Biliary: No significant intrahepatic or extrahepatic biliary ductal dilatation. Normal gallbladder. Pancreas: Normal. Spleen: Normal. Adrenal glands: Normal. Kidneys and ureters: Normal. No hydronephrosis. Bladder: Normal. Pelvic organs: Uterus and ovaries normal. Fluid and gas noted in the vagina. A dominant follicle is suspected in the right ovary. Bowel: Normal appendix. No bowel obstruction. Peritoneal cavity: Trace free fluid in the pelvis. Lymph nodes: No enlarged lymph nodes in the abdomen or pelvis. Vasculature: Aorta and IVC patent and normal in caliber. Abdominal wall: Normal. Musculoskeletal: Normal. IMPRESSION: 1. No acute intra-abdominal pathology. 2. Trace free fluid in the pelvis is likely physiologic. Electronically signed by: Raimundo Warner M.D. 01/08/2018 7:42 PM Dictated Date/Time: 01/08/2018 7:37 PM
[2018-01-08] MEDS ORDERED: HYDR-5688 PO (19:53)
[2018-01-08] MEDS ORDERED: ONDA4TAB10 SL (19:53)
[2018-01-08] MEDS ORDERED: ONDANSETRON HOME PACK 4MG OD TAB PO ONE (20:00)
[2018-01-08] MEDS ORDERED: NORCO 5/325MG HOME PACK PO ONE (20:00)
[2018-01-08 20:11] VITALS: BP 135/74; PULSE 64; TEMP 36.7; O2SAT 95
== END 2018-01-08 20:12 | disposition home or self-care (01) ==
LOC: C.EDB 15:37
DX: R11.2 Nausea with vomiting, unspecified (principal); R10.11 Right upper quadrant pain; R50.9 Fever, unspecified

== ENCOUNTER 2020-04-16 18:11 | Observation (INO) ==
--- NOTE | 2020-04-16 18:37 | Emergency Department Note ---
Impression & Plan Precordial chest pain, SOB (shortness of breath), H/O ventricular tachycardia ED Provider Note NAME: KENA PACKER AGE: 24 SEX: F : 1995 ARRIVES VIA: Ambulance INFORMANT: [Patient][ems] ED PROVIDER(S): [Scar Dallas MD] CHIEF COMPLAINT: Chest pain HISTORY OF PRESENT ILLNESS: The patient is a 24-year-old female with a history of ventricular tachycardia. The patient states that for 9 hours she has had some chest tightness. The tightness is worse with exertion. The pain gets up to a 7 or 8 on a scale of 1- 10. She feels short of breath with it. She has had a slight radiation of pain to her right arm. No nausea or sweating. The patient does feel weak and fatigued. She states that she has not had cough, cold or congestion. She has been in baseline health. She was concerned because of the chest discomfort and her past history. She spoke to [facility] cardiology and was referred to the ED. REVIEW OF SYSTEMS: See HPI for pertinent positives and negatives. A total of ten systems were reviewed and were otherwise negative. PMHx/PSHx: See Below SOCIAL HISTORY: See Below. PHYSICAL EXAM: GENERAL: Patient is in no acute distress. HEENT: No acute trauma, normocephalic atraumatic, mucous membranes moist, no nasal congestion, no scleral icterus. NECK: No stridor, no adenopathy, no meningismus, trachea is midline. LUNGS: Clear to auscultation bilaterally, no wheeze, no rhonchi, breath sounds equal. HEART: Without murmurs gallops or rubs, regular rate and rhythm. Chest: Nontender chest wall. ABDOMEN: Soft, nontender, bowel sounds positive, no hernias, no peritonitis. EXTREMITIES: No cyanosis or edema, full range of motion of all the joints without pain or difficulty, no signs for acute trauma. NEUROLOGIC: Oriented x 3, no acute motor or sensory deficits, no focal weakness. SKIN: No rash, no jaundice, no diaphoresis. DIFFERENTIAL DIAGNOSIS: Cardiac ischemia, aortic dissection, pulmonary embolism, pneumothorax, pneumonia, pericarditis, myocarditis, esophageal rupture, GERD, cholecystitis, pancreatitis, musculoskeletal, as well as other pathologies. EMERGENCY DEPARTMENT COURSE/PROCEDURES: ECG: Indication was chest pain. The ECG shows a normal sinus rhythm with a rate of 72. The QTc is 422. There is no ST elevation, no PVCs. Continuous Cardiac Monitoring: An order was placed for continuous cardiac monitoring. The monitor shows a rate of 80 with normal sinus rhythm. MEDICAL DECISION MAKING: There is no leukocytosis or concerning anemia. No coagulopathy. No significant electrolyte abnormality or kidney failure. No evidence for liver enzyme elevation. No evidence for pancreatitis. testing was negative. D- dimer testing was negative. With a negative d-dimer and my low suspicion for PE, I will stop the work-up for this diagnosis. Chest film did not show pneumonia or CHF. ECG showed a sinus rhythm, no acute ischemia. Cardiac enzyme testing x1 is not consistent with acute cardiac injury. The patient is currently resting comfortably. Her work-up is reassuring. I did discuss the case with [facility] cardiology. Observation and a hospital stay were recommended. I spoke to the patient, I spoke with case management. Further cardiac work-up has been recommended. The on-call hospitalist has been consulted. At this point, the cause of her presentation is unclear. Past Med/Surg History Medical History (Updated 04/16/20 @ 20:29 by Scar Dallas MD) Ventricular tachycardia (paroxysmal) Social History Smoking Status: Never smoker Preferred Language: Maldivian Feels Safe at Home: Yes Allergies Allergies Allergy/AdvReac Type Severity Reaction Status Date / Time tramadol AdvReac Intermediate nausea Verified 04/16/20 19:07 Home Meds Home Medications Medication Instructions Recorded Confirmed atenolol [Tenormin] 25 mg PO BID #0 tab 12/17/17 04/16/20 sodium chloride 1,000 mg PO QAM #0 12/17/17 04/16/20 etonogestrel [Nexplanon] 1 implant SUBDERMAL UD 04/16/20 04/16/20 Results & Data (ED) Vital Signs Vital Signs - 24 hr 04/16/20 18:17 04/16/20 18:28 04/16/20 18:29 Temperature 37.5 C Temperature Source Oral Pulse Rate 79 76 82 Pulse Rate from SpO2 Sensor 79 78 Respiratory Rate 20 20 20 Blood Pressure 121/99 121/99 Blood Pressure Mean 107 106 Pulse Oximetry 97 97 97 Oxygen Delivery Method Room Air Sepsis Recent Fever Within 48 Hours No Sepsis New/Unexplained Change in Mental Status No Sepsis Action Taken by Nursing No Action Required 04/16/20 18:30 04/16/20 19:00 04/16/20 19:30 Temperature Temperature Source Pulse Rate 89 76 80 Pulse Rate from SpO2 Sensor 92 H 74 80 Respiratory Rate 19 14 29 H Blood Pressure 126/102 H 116/68 128/70 Blood Pressure Mean 111 78 86 Pulse Oximetry 98 97 97 Oxygen Delivery Method Sepsis Recent Fever Within 48 Hours Sepsis New/Unexplained Change in Mental Status Sepsis Action Taken by Nursing 04/16/20 20:00 04/16/20 20:30 04/16/20 21:00 Temperature Temperature Source Pulse Rate 80 80 76 Pulse Rate from SpO2 Sensor 77 90 75 Respiratory Rate 22 17 20 Blood Pressure 122/69 124/63 130/86 Blood Pressure Mean 84 86 98 Pulse Oximetry 99 97 98 Oxygen Delivery Method Sepsis Recent Fever Within 48 Hours Sepsis New/Unexplained Change in Mental Status Sepsis Action Taken by Nursing 04/16/20 21:30 04/16/20 22:00 Temperature Temperature Source Pulse Rate 80 69 Pulse Rate from SpO2 Sensor 83 69 Respiratory Rate 22 20 Blood Pressure 117/74 122/73 Blood Pressure Mean 82 79 Pulse Oximetry 98 98 Oxygen Delivery Method Sepsis Recent Fever Within 48 Hours Sepsis New/Unexplained Change in Mental Status Sepsis Action Taken by [facility] Medications Current Medication List: was personally reviewed by me Laboratory Data Attestation: I reviewed the patient's lab results. Result diagrams: 04/16/20 18:45 04/16/20 18:45 Lab Results 04/16/20 04/16/20 04/16/20 Range/Units 18:45 18:45 18:45 WBC 8.58 (4.8-10.8) K/uL RBC 3.95 L (4.2-5.4) M/uL Hgb 12.4 (12.0-16.0) g/dL Hct 35.4 L (37-47) % MCV 89.6 (80-100) fL MCH 31.4 (25-34) pg MCHC 35.0 (32-36) g/dL RDW Std Deviation 42.5 (36.4-46.3) fL RDW Coeff of Hermila 13.0 (11.5-14.5) % Plt Count 314 (130-400) K/uL MPV 10.3 (7.4-10.4) fL Immature Gran % (Auto) 0.1 % Neut % (Auto) 75.3 % Lymph % (Auto) 19.5 % [place] % (Auto) 4.2 % Eos % (Auto) 0.8 % Baso % (Auto) 0.1 % Neut # (Auto) 6.46 (1.4-6.5) K/uL Lymph # (Auto) 1.67 (1.2-3.4) K/uL [place] # (Auto) 0.36 (0.11-0.59) K/uL Eos # (Auto) 0.07 (0-0.5) K/uL Baso # (Auto) 0.01 (0-0.2) K/uL Immature Gran # (Auto) 0.01 (0.00-0.02) K/uL PT 11.4 (9.0-12.0) Seconds INR 1.1 (0.9-1.1) APTT 26.1 (21.0-31.0) Seconds PTT Ratio 0.9 D-Dimer 300 (0-500) ug/L FEU Sodium 139 (136-145) mmol/L Potassium 3.7 (3.5-5.1) mmol/L Chloride 108 H (98-107) mmol/L Carbon Dioxide 23 (21-32) mmol/L Anion Gap 8.0 (3-11) BUN 11 (7-18) mg/dl Creatinine 0.73 (0.6-1.2) mg/dl Est Cr Clr Drug Dosing 96.6 ml/min Est GFR ( Amer) 131.7 Est GFR (Non-Af Amer) 113.7 BUN/Creatinine Ratio 15.6 (10-20) Glucose 95 (70-99) mg/dl Calcium 9.0 (8.5-10.1) mg/dl Magnesium 2.2 (1.8-2.4) mg/dl Total Bilirubin 0.3 (0.2-1) mg/dl AST 11 L (15-37) U/L ALT 16 (12-78) U/L Alkaline Phosphatase 63 (45-117) U/L Troponin I < 0.015 (0-0.045) ng/ml Total Protein 7.8 (6.4-8.2) gm/dl Albumin 4.0 (3.4-5.0) gm/dl Globulin 3.8 (2.5-4.0) gm/dl Albumin/Globulin Ratio 1.1 (0.9-2) Lipase 128 (73-393) U/L HCG, Qual (Negative) COVID-19 Eval Order SARS-CoV-2, RNA, NAAT (NEGATIVE) 04/16/20 04/16/20 04/16/20 Range/Units 18:45 21:25 21:25 WBC (4.8-10.8) K/uL RBC (4.2-5.4) M/uL Hgb (12.0-16.0) g/dL Hct (37-47) % MCV (80-100) fL MCH (25-34) pg MCHC (32-36) g/dL RDW Std Deviation (36.4-46.3) fL RDW Coeff of Hermila (11.5-14.5) % Plt Count (130-400) K/uL MPV (7.4-10.4) fL Immature Gran % (Auto) % Neut % (Auto) % Lymph % (Auto) % [place] % (Auto) % Eos % (Auto) % Baso % (Auto) % Neut # (Auto) (1.4-6.5) K/uL Lymph # (Auto) (1.2-3.4) K/uL [place] # (Auto) (0.11-0.59) K/uL Eos # (Auto) (0-0.5) K/uL Baso # (Auto) (0-0.2) K/uL Immature Gran # (Auto) (0.00-0.02) K/uL PT (9.0-12.0) Seconds INR (0.9-1.1) APTT (21.0-31.0) Seconds PTT Ratio D-Dimer (0-500) ug/L FEU Sodium (136-145) mmol/L Potassium (3.5-5.1) mmol/L Chloride (98-107) mmol/L Carbon Dioxide (21-32) mmol/L Anion Gap (3-11) BUN (7-18) mg/dl Creatinine (0.6-1.2) mg/dl Est Cr Clr Drug Dosing ml/min Est GFR ( Amer) Est GFR (Non-Af Amer) BUN/Creatinine Ratio (10-20) Glucose (70-99) mg/dl Calcium (8.5-10.1) mg/dl Magnesium (1.8-2.4) mg/dl Total Bilirubin (0.2-1) mg/dl AST (15-37) U/L ALT (12-78) U/L Alkaline Phosphatase (45-117) U/L Troponin I (0-0.045) ng/ml Total Protein (6.4-8.2) gm/dl Albumin (3.4-5.0) gm/dl Globulin (2.5-4.0) gm/dl Albumin/Globulin Ratio (0.9-2) Lipase (73-393) U/L HCG, Qual Negative (Negative) [facility], RNA, NAAT NEGATIVE (NEGATIVE) Administered Medications Parenteral Electrolytes (Normosol-R) 1,000 mls @ 60 mls/hr IV .[id number] STA Stop: 04/17/20 14:04 Last Admin: 04/16/20 21:52 Dose: 60 mls/hr Documented by: [id number] Discontinued Medications Potassium Chloride (Potassium Chloride 20 Meq Tabcr) 40 meq PO NOW STA Stop: 04/16/20 20:38 Last Admin: 04/16/20 20:49 Dose: 40 meq Documented by: [id number] Imaging Data Radiologist's Impression: XR chest 1V portable CLINICAL HISTORY: Atypical chest pain COMPARISON STUDY: 12/17/2017 FINDINGS: The cardiac and mediastinal contours are normal. There is no evidence of focal pulmonary consolidation. There is no evidence of failure. No pleural effusions are visualized.[ IMPRESSION: No active disease in the chest. Blood Pressure Blood Pressure Findings: Elevated blood pressure Blood Pressure Disposition: further management by hospitalist Discharge Plan Visit Data Chief Complaint: Chest Pain ED Provider: Scar Dallas Discharge Problem: Precordial chest pain, SOB (shortness of breath), H/O ventricular tachycardia Patient Disposition: Admitted As Inpatient Condition: Good Forms Stand Alone Forms: [facility] Keypr Prescriptions Prescriptions: No Action atenolol [Tenormin] 25 mg Tablet 25 mg PO BID Qty: 0 RF: 0 sodium chloride 1 gram Tablet 1,000 mg PO QAM Qty: 0 RF: 0 Nexplanon 68 mg Implant 1 implant SUBDERMAL UD RF: 0 Referrals Referrals: Joselin Valdez MD [Primary Care Provider] -
--- NOTE | 2020-04-16 18:54 | XRay Report ---
XR chest 1V portable CLINICAL HISTORY: Atypical chest pain COMPARISON STUDY: 12/17/2017 FINDINGS: The cardiac and mediastinal contours are normal. There is no evidence of focal pulmonary co nsolidation. There is no evidence of failure. No pleural effusions are visualized.[ IMPRESSION: No active disease in the chest. ACT 112: Negative or not required by law. Electronically signed by: Siddharth Mcdonnell M.D. 04/16/2020 6:53 PM
[2020-04-16 18:58] LABS: Basophils # (auto) 0.01 K/uL (0-0.2); Basophils % (auto) 0.1 %; Eosinophils # (auto) 0.07 K/uL (0-0.5); Eosinophils % (auto) 0.8 %; Hematocrit (blood only) 35.4 % (37-47); Hemoglobin 12.4 g/dL (12.0-16.0); Immature Granulocytes # (auto) 0.01 K/uL (0.00-0.02); Immature Granulocytes % (auto) 0.1 %; Lymphocytes # (auto) 1.67 K/uL (1.2-3.4); Lymphocytes % (auto) 19.5 %; Mean Corpuscular Hemoglobin 31.4 pg (25-34); Mean Corpuscular Volume 89.6 fL (80-100); Mean Platelet Volume 10.3 fL (7.4-10.4); Monocytes # (auto) 0.36 K/uL (0.11-0.59); Monocytes % (auto) 4.2 %; Neutrophils # (auto) 6.46 K/uL (1.4-6.5); Neutrophils % (auto) 75.3 %; Platelet Count 314 K/uL (130-400); RDW Standard Deviation 42.5 fL (36.4-46.3); Red Blood Count 3.95 M/uL (4.2-5.4); White Blood Count 8.58 K/uL (4.8-10.8)
[2020-04-16 19:13] LABS: D Dimer 300 ug/L FEU (0-500); INR 1.1 (0.9-1.1); Partial Thromboplastin Ratio 0.9; Partial Thromboplastin Time 26.1 Seconds (21.0-31.0); Prothrombin Time 11.4 Seconds (9.0-12.0)
[2020-04-16 19:15] LABS: Alanine Aminotransferase 16 U/L (12-78); Aspartate Aminotransferase 11 U/L (15-37); BUN Creatinine Ratio 15.6 (10-20); Blood Urea Nitrogen 11 mg/dl (7-18); Carbon Dioxide 23 mmol/L (21-32); Chloride 108 mmol/L (98-107); Creatinine Clr Calc Pharmacy 96.6 ml/min; Est GFR (African American) 131.7; Est GFR (Non-African American) 113.7; Glucose 95 mg/dl (70-99); Lipase 128 U/L (73-393); Magnesium 2.2 mg/dl (1.8-2.4); Potassium 3.7 mmol/L (3.5-5.1); Sodium 139 mmol/L (136-145)
[2020-04-16 19:17] LABS: Pregnancy Test, Serum Negative (Negative)
[2020-04-16 19:22] LABS: Albumin Globulin Ratio 1.1 (0.9-2); Alkaline Phosphatase 63 U/L (45-117); Bilirubin,Total 0.3 mg/dl (0.2-1); Globulin 3.8 gm/dl (2.5-4.0); Total Protein 7.8 gm/dl (6.4-8.2); Troponin I < 0.015 ng/ml (0-0.045)
[2020-04-16] MEDS ORDERED: POTASSIUM CHLORIDE 20 MEQ TABCR PO STA (20:37)
[2020-04-16] MEDS ORDERED: NORMOSOL-R 1,000 ML IV STA (21:25)
--- NOTE | 2020-04-16 21:31 | History & Physical Report ---
Date of Service April 16, 2020 Assessment & Plan (1) Precordial chest pain: Atypical likely musculoskeletal given reproducibility Palpitations rule out recurrent VT OBS PCU TTE, Cardiology consult in a.m. RE atypical chest pain, palpitations (ER provider already in touch with Dr. Bolanos.) DVT prophylaxis. SCDs Full code Text document was generated using [employer] voice recognition software. It may contain grammatical or spelling errors. Kindly contact undersigned for clarification of any documentation item in question. History of Present Illness Chief Complaint: Chest pain, palpitations Primary Care Provider: Joselin Valdez MD History obtained from patient and records. Medical history significant for paroxysmal VT/PVCs, history of vasodepressive syncope as per records. Last confinement October 2016 under OB service for labor induction. Patient transferred to [facility] due to need for cardiac monitoring. This morning, patient woke up feeling tired, drained of energy. No cough symptoms. 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 No tick bite exposure. Patient later noted transient chest tightness going to the right arm different from heartburn associated with bothersome palpitations. No headache, syncope/near syncopal events. No unusual stress at home or at work. Denies inordinate caffeine intake. Compliant with medications. Patient advised by sheep boner's office to go to the ER. 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 Allergies Allergy/AdvReac Type Severity Reaction Status Date / Time tramadol AdvReac Intermediate nausea Verified 04/16/20 19:07 Home Medications Home Medications Medication Instructions Recorded Confirmed Type atenolol [Tenormin] 25 mg PO BID #0 tab 12/17/17 04/16/20 History sodium chloride 1,000 mg PO QAM #0 12/17/17 04/16/20 History etonogestrel [Nexplanon] 1 implant SUBDERMAL UD 04/16/20 04/16/20 History Past Med/Surg History Medical History (Updated 04/16/20 @ 20:29 by Scar Dallas MD) Ventricular tachycardia (paroxysmal) Social History Smoking Status: Never smoker Preferred Language: Northern Irish Feels Safe at Home: Yes Review of Systems Review of Systems: As per HPI, all 10 systems reviewed, all other ROS negative Physical Exam Physical Exam: GENERAL: Comfortable, pleasant, slightly anxious, no respiratory distress SKIN: Normal color, warm HEENT: Bespectacled, [place] palpebral conjunctivae, no ptosis, moist buccal mucosa NECK : Supple, no tenderness CHEST : CTA, no tenderness HEART : RRR, occasional ectopic beats , no obvious murmurs ABDOMEN: soft, nontender EXTREMITIES : No LE swelling/tenderness, no other conspicuous deformities noted NEUROLOGIC : Coherent, no facial asymmetry, no other gross focality Results & Data Results & Data ([facility]) Vital Signs (Past 12 Hours) Vital Signs Temp Pulse Resp BP Pulse Ox 04/16/20 20:00 80 22 122/69 99 04/16/20 19:30 80 29 H 128/70 97 04/16/20 19:00 76 14 116/68 97 04/16/20 18:30 89 19 126/102 H 98 04/16/20 18:29 37.5 C 82 20 121/99 97 04/16/20 18:28 76 20 97 04/16/20 18:17 79 20 121/99 97 Laboratory Results Laboratory Results WBC 8.58 K/uL (4.8-10.8) 04/16/20 18:45 RBC 3.95 M/uL (4.2-5.4) L 04/16/20 18:45 Hgb 12.4 g/dL (12.0-16.0) 04/16/20 18:45 Hct 35.4 % (37-47) L 04/16/20 18:45 MCV 89.6 fL (80-100) 04/16/20 18:45 MCH 31.4 pg (25-34) 04/16/20 18:45 MCHC 35.0 g/dL (32-36) 04/16/20 18:45 RDW Std Deviation 42.5 fL (36.4-46.3) 04/16/20 18:45 RDW Coeff of Hermila 13.0 % (11.5-14.5) 04/16/20 18:45 Plt Count 314 K/uL (130-400) 04/16/20 18:45 MPV 10.3 fL (7.4-10.4) 04/16/20 18:45 Immature Gran % (Auto) 0.1 % 04/16/20 18:45 Neut % (Auto) 75.3 % 04/16/20 18:45 Lymph % (Auto) 19.5 % 04/16/20 18:45 [place] % (Auto) 4.2 % 04/16/20 18:45 Eos % (Auto) 0.8 % 04/16/20 18:45 Baso % (Auto) 0.1 % 04/16/20 18:45 Neut # (Auto) 6.46 K/uL (1.4-6.5) 04/16/20 18:45 Lymph # (Auto) 1.67 K/uL (1.2-3.4) 04/16/20 18:45 [place] # (Auto) 0.36 K/uL (0.11-0.59) 04/16/20 18:45 Eos # (Auto) 0.07 K/uL (0-0.5) 04/16/20 18:45 Baso # (Auto) 0.01 K/uL (0-0.2) 04/16/20 18:45 Immature Gran # (Auto) 0.01 K/uL (0.00-0.02) 04/16/20 18:45 PT 11.4 Seconds (9.0-12.0) 04/16/20 18:45 INR 1.1 (0.9-1.1) 04/16/20 18:45 APTT 26.1 Seconds (21.0-31.0) 04/16/20 18:45 PTT Ratio 0.9 04/16/20 18:45 D-Dimer 300 ug/L FEU (0-500) 04/16/20 18:45 Sodium 139 mmol/L (136-145) 04/16/20 18:45 Potassium 3.7 mmol/L (3.5-5.1) 04/16/20 18:45 Chloride 108 mmol/L (98-107) H 04/16/20 18:45 Carbon Dioxide 23 mmol/L (21-32) 04/16/20 18:45 Anion Gap 8.0 (3-11) 04/16/20 18:45 BUN 11 mg/dl (7-18) 04/16/20 18:45 Creatinine 0.73 mg/dl (0.6-1.2) 04/16/20 18:45 Est Cr Clr Drug Dosing 96.6 ml/min 04/16/20 18:45 Est GFR ( Amer) 131.7 04/16/20 18:45 Est GFR (Non-Af Amer) 113.7 04/16/20 18:45 BUN/Creatinine Ratio 15.6 (10-20) 04/16/20 18:45 Glucose 95 mg/dl (70-99) 04/16/20 18:45 Calcium 9.0 mg/dl (8.5-10.1) 04/16/20 18:45 Magnesium 2.2 mg/dl (1.8-2.4) 04/16/20 18:45 Total Bilirubin 0.3 mg/dl (0.2-1) 04/16/20 18:45 AST 11 U/L (15-37) L 04/16/20 18:45 ALT 16 U/L (12-78) 04/16/20 18:45 Alkaline Phosphatase 63 U/L (45-117) 04/16/20 18:45 Troponin I < 0.015 ng/ml (0-0.045) 04/16/20 18:45 Total Protein 7.8 gm/dl (6.4-8.2) 04/16/20 18:45 Albumin 4.0 gm/dl (3.4-5.0) 04/16/20 18:45 Globulin 3.8 gm/dl (2.5-4.0) 04/16/20 18:45 Albumin/Globulin Ratio 1.1 (0.9-2) 04/16/20 18:45 Lipase 128 U/L (73-393) 04/16/20 18:45 HCG, Qual Negative (Negative) 04/16/20 18:45 Diagnostic Findings Chest x-ray : No active disease EKG as per my interpretation : Rate 70, NSR, normal axis, no ischemia
[2020-04-16] MEDS ORDERED: OXYCODONE HCL IR 5 MG TAB (IMMEDIATE RELEASE) PO PRN (23:44)
[2020-04-16] MEDS ORDERED: ACETAMINOPHEN 325 MG TAB PO PRN (23:44)
[2020-04-16] MEDS ORDERED: LORazepam 0.25 MG/0.5 ML VIAL IV PRN (23:44)
[2020-04-16] MEDS ORDERED: IBUPROFEN 200 MG TAB PO PRN (23:44)
[2020-04-16] MEDS ORDERED: PROMETHAZINE HCL 12.5 MG in SODIUM CHLORIDE 0.9% 50 ML IV PRN (23:44)
[2020-04-16] MEDS ORDERED: NITROGLYCERIN SL 0.4 MG/TAB TAB SL PRN (23:44)
[2020-04-17 06:00] LABS: Basophils # (auto) 0.01 K/uL (0-0.2); Basophils % (auto) 0.2 %; Eosinophils # (auto) 0.11 K/uL (0-0.5); Eosinophils % (auto) 1.8 %; Hematocrit (blood only) 33.7 % (37-47); Hemoglobin 11.4 g/dL (12.0-16.0); Lymphocytes # (auto) 2.11 K/uL (1.2-3.4); Lymphocytes % (auto) 34.6 %; Mean Corpuscular Hemoglobin 31.4 pg (25-34); Mean Corpuscular Hgb Conc 33.8 g/dL (32-36); Mean Corpuscular Volume 92.8 fL (80-100); Mean Platelet Volume 10.3 fL (7.4-10.4); Monocytes # (auto) 0.52 K/uL (0.11-0.59); Monocytes % (auto) 8.5 %; Neutrophils # (auto) 3.34 K/uL (1.4-6.5); Neutrophils % (auto) 54.9 %; Platelet Count 286 K/uL (130-400); RDW Coefficient of Variation 13.2 % (11.5-14.5); RDW Standard Deviation 45.4 fL (36.4-46.3); Red Blood Count 3.63 M/uL (4.2-5.4); White Blood Count 6.09 K/uL (4.8-10.8)
[2020-04-17 06:12] LABS: Partial Thromboplastin Ratio 0.9; Partial Thromboplastin Time 25.3 Seconds (21.0-31.0)
[2020-04-17 06:24] LABS: BUN Creatinine Ratio 18.3 (10-20); Blood Urea Nitrogen 14 mg/dl (7-18); Calcium 8.2 mg/dl (8.5-10.1); Carbon Dioxide 22 mmol/L (21-32); Chloride 111 mmol/L (98-107); Creatinine Clr Calc Pharmacy 92.8 ml/min; Est GFR (African American) 125.5; Est GFR (Non-African American) 108.3; Glucose 98 mg/dl (70-99); Potassium 4.2 mmol/L (3.5-5.1); Sodium 139 mmol/L (136-145)
[2020-04-17 06:28] LABS: Troponin I < 0.015 ng/ml (0-0.045)
--- NOTE | 2020-04-17 08:44 | Cardiology Consultation ---
Date of Consultation April 17, 2020 Assessment & Plan (1) Precordial chest pain: (2) SOB (shortness of breath): (3) Vasodepressor syncope: The patient had an uneventful night. Cardiac markers are negative. Telemetry has indicated sinus rhythm since admission. She has a follow-up appointment with her primary migratory worker Dr. Westbrook this coming Sunday which she will keep. I believe the patient may be discharged home on her current medications. No additional cardiac testing is indicated. History of Present Illness Attending Physician: Zack Argueta MD History of Present Illness This is a 24-year-old female who at age 11 had a syncopal episode while at school. According the patient she fell and struck her head. CPR was given. She had an extensive evaluation at that time by the EP service. She had a cardiac MRI that was negative for RV dysplasia. She had a noninducible electrophysiology study. Echocardiography was normal. She had a tilt table test that was markedly positive. She was placed on atenolol and given education regarding vasovagal syncope. She has done well over the years including having 2 children without complication. Approximately a year ago she was under a lot of stress and was experiencing some dizziness. She had a echocardiogram and MCOT monitor. The echocardiogram was essentially normal and the monitor indicated sinus rhythm when she was symptomatic. Yesterday she was very tired when she got out of bed. She felt fatigued and had some mild shortness of breath while climbing steps. She also had some upper chest discomfort. She was brought to the emergency department where she has been admitted. Her cardiac markers are negative. Telemetry showed no arrhythmias. She has maintained sinus rhythm. She feels better today and has been walking around without symptoms. Past Medical history: 1. Syncope and presyncope felt to be vasomotor 2. Positive tilt table test for vasodepressor reflex in 2006 3. Premature ventricular contractions and nonsustained monomorphic ventricular tachycardia. Normal cardiac MRI and electrophysiologic study in 2006. 4. Normal echocardiogram 2017 5. Previous MCOT 2016 with symptoms of dizziness correlating to NSR Allergies Allergy/AdvReac Type Severity Reaction Status Date / Time tramadol AdvReac Intermediate nausea Verified 04/16/20 19:07 Home Medications Home Medications Medication Instructions Recorded Confirmed Type atenolol [Tenormin] 25 mg PO BID #0 tab 12/17/17 04/16/20 History sodium chloride 1,000 mg PO QAM #0 12/17/17 04/16/20 History etonogestrel [Nexplanon] 1 implant SUBDERMAL UD 04/16/20 04/16/20 History Patient History Medical History Ventricular tachycardia (paroxysmal) Social History Smoking Status: Never smoker Hx Alcohol Use: No Hx Substance Use: No Preferred Language: Bhutanese Communication Ability: Effective Pattern Grader Required: No Beliefs That Will Affect Care: None Current Living Situation: Significant Other Current Living Situation Comment: boyfriend and 2 children. Other Information That Helps Us Care for You: No Feels Safe at Home: Hesitant to Answer Safety Concerns: Afraid for Self Review of Systems 2 Review of Systems: All systems reviewed & are unremarkable except as noted in HPI & below Nothing additional to add. Physical Exam Physical Exam: General: no acute distress and stated age Head: normocephalic, no masses, lesions, tenderness or abnormalities Eyes: conjunctiva are pink and non-injected, sclera clear Neck: supple, no adenopathy, no bruits, normal jugular venous pulse, no hepatojugular reflux Chest: normal shape and normal respiratory effort Lungs: clear to auscultation and percussion Cardiac Exam: - regular rate & rhythm, no murmurs gallops or rubs - normal S1, normal S2 Pulses: 2(+) throughout Abdomen: abdomen soft, non-tender, no abnormal masses and no hepatosplenomegaly Musculoskeletal: no gait disturbance, no joint inflammation, no deforming arthritis Extremities: no edema and no cyanosis Neuro: grossly normal exam Results & Data ([facility]) Vital Signs (Past 12 Hours) Vital Signs Temp Pulse Pulse Resp BP BP Pulse Ox 04/17/20 08:15 36.5 C 84 16 110/60 04/17/20 03:55 36.7 C 80 18 104/63 97 04/16/20 23:47 69 04/16/20 23:44 36.9 C 70 16 118/77 98 04/16/20 23:21 62 20 107/63 98 04/16/20 23:00 99 04/16/20 22:30 93 H 14 112/58 L 99 04/16/20 22:00 69 20 122/73 98 04/16/20 21:30 80 22 117/74 98 04/16/20 21:00 76 20 130/86 98 Laboratory Results Laboratory Results - last 24 hr 04/16/20 04/16/20 04/16/20 18:45 18:45 18:45 WBC 8.58 RBC 3.95 L Hgb 12.4 Hct 35.4 L MCV 89.6 MCH 31.4 MCHC 35.0 RDW Std Deviation 42.5 RDW Coeff of Hermila 13.0 Plt Count 314 MPV 10.3 Immature Gran % (Auto) 0.1 Neut % (Auto) 75.3 Lymph % (Auto) 19.5 [place] % (Auto) 4.2 Eos % (Auto) 0.8 Baso % (Auto) 0.1 Neut # (Auto) 6.46 Lymph # (Auto) 1.67 [place] # (Auto) 0.36 Eos # (Auto) 0.07 Baso # (Auto) 0.01 Immature Gran # (Auto) 0.01 PT 11.4 INR 1.1 APTT 26.1 PTT Ratio 0.9 D-Dimer 300 Sodium 139 Potassium 3.7 Chloride 108 H Carbon Dioxide 23 Anion Gap 8.0 BUN 11 Creatinine 0.73 Est Cr Clr Drug Dosing 96.6 Est GFR ( Amer) 131.7 Est GFR (Non-Af Amer) 113.7 BUN/Creatinine Ratio 15.6 Glucose 95 Calcium 9.0 Magnesium 2.2 Total Bilirubin 0.3 AST 11 L ALT 16 Alkaline Phosphatase 63 Troponin I < 0.015 Total Protein 7.8 Albumin 4.0 Globulin 3.8 Albumin/Globulin Ratio 1.1 Lipase 128 HCG, Qual COVID-19 Eval Order SARS-CoV-2, RNA, NAAT 04/16/20 04/16/20 04/16/20 18:45 21:25 21:25 WBC RBC Hgb Hct MCV MCH MCHC RDW Std Deviation RDW Coeff of Hermila Plt Count MPV Immature Gran % (Auto) Neut % (Auto) Lymph % (Auto) [place] % (Auto) Eos % (Auto) Baso % (Auto) Neut # (Auto) Lymph # (Auto) [place] # (Auto) Eos # (Auto) Baso # (Auto) Immature Gran # (Auto) PT INR APTT PTT Ratio D-Dimer Sodium Potassium Chloride Carbon Dioxide Anion Gap BUN Creatinine Est Cr Clr Drug Dosing Est GFR ( Amer) Est GFR (Non-Af Amer) BUN/Creatinine Ratio Glucose Calcium Magnesium Total Bilirubin AST ALT Alkaline Phosphatase Troponin I Total Protein Albumin Globulin Albumin/Globulin Ratio Lipase HCG, Qual Negative COVID-19 Eval [facility] SARS-CoV-2, RNA, NAAT NEGATIVE 04/17/20 04/17/20 04/17/20 05:48 05:48 05:48 WBC 6.09 RBC 3.63 L Hgb 11.4 L Hct 33.7 L MCV 92.8 MCH 31.4 MCHC 33.8 RDW Std Deviation 45.4 RDW Coeff of Hermila 13.2 Plt Count 286 MPV 10.3 Immature Gran % (Auto) 0.0 Neut % (Auto) 54.9 Lymph % (Auto) 34.6 [place] % (Auto) 8.5 Eos % (Auto) 1.8 Baso % (Auto) 0.2 Neut # (Auto) 3.34 Lymph # (Auto) 2.11 [place] # (Auto) 0.52 Eos # (Auto) 0.11 Baso # (Auto) 0.01 Immature Gran # (Auto) 0.00 PT INR APTT 25.3 PTT Ratio 0.9 D-Dimer Sodium 139 Potassium 4.2 Chloride 111 H Carbon Dioxide 22 Anion Gap 6.0 BUN 14 Creatinine 0.76 Est Cr Clr Drug Dosing 92.8 Est GFR ( Amer) 125.5 Est GFR (Non-Af Amer) 108.3 BUN/Creatinine Ratio 18.3 Glucose 98 Calcium 8.2 L Magnesium Total Bilirubin AST ALT Alkaline Phosphatase Troponin I < 0.015 Total Protein Albumin Globulin Albumin/Globulin Ratio Lipase HCG, Qual COVID-19 Eval Order SARS-CoV-2, RNA, NAAT Medications Administered Current Inpatient Medications Acetaminophen (Acetaminophen 325 Mg Tab) 650 mg PO Q4H PRN PRN Reason: Pain or Fever Stop: 05/16/20 23:43 Atenolol (Atenolol 25 Mg Tablet) 25 mg PO BID FRANKO Stop: 05/17/20 08:59 Last Admin: 04/17/20 07:49 Dose: 25 mg Documented by: Parenteral Electrolytes (Normosol-R) 1,000 mls @ 60 mls/hr IV .[id number] STA Stop: 04/17/20 14:04 Last Admin: 04/16/20 21:52 Dose: 60 mls/hr Documented by: Promethazine HCl 12.5 mg/ (Sodium Chloride) 50.5 mls @ 202 mls/hr IV Q6H PRN PRN Reason: Nausea And Vomiting Stop: 05/16/20 23:43 Lorazepam (Ativan) 0.25 mg in 0.5 mls @ 0.5 mls/min IV Q4H PRN PRN Reason: Anxiety Stop: 05/16/20 23:43 Ibuprofen (Ibuprofen 200 Mg Tab) 200 mg PO Q6H PRN PRN Reason: Mild Pain Stop: 05/16/20 23:43 Nitroglycerin (Nitroglycerin Sl 0.4 Mg/Tab Tab) 0.4 mg SL UD PRN PRN Reason: Chest Pain Stop: 05/16/20 23:43 Oxycodone HCl (Oxycodone Hcl Ir 5 Mg Tab (Immediate Release)) 5 mg PO Q4H PRN PRN Reason: Pain Stop: 04/30/20 23:43 Sodium Chloride (Sodium Chloride 1 Gm Tablet) 1 gm PO QAM [facility] Stop: 05/17/20 08:59 Last Admin: 04/17/20 07:49 Dose: 1 gm Documented by:
[2020-04-17] MEDS ORDERED: SODIUM CHLORIDE 1 GM TABLET PO SCH (09:00)
[2020-04-17] MEDS ORDERED: ATENOLOL 25 MG TABLET PO SCH (09:00)
--- NOTE | 2020-04-17 09:50 | Hospitalist Progress Note ---
Date of Service April 17, 2020 Assessment & Plan (1) Precordial chest pain: Atypical Chest Pain Likely secondary to DD: anxiety, Musculoskeletal CXR: No active disease in the chest. Previously evaluated by EP as outpatient Negative Cardiac Enzymes Showed no signs of acute ischemia Currently chest pain resolved Appreciate cardiology input Continue atenolol No rhythm issues on monitor Needs follow-up with [facility] cardiology as outpatient for further evaluation and management DVT Px: SCDs Code Status Full code Disposition: Plan to discharge home today Admission and Anticipated Discharge Date Admission Date: April 16, 2020 Subjective Patient is seen and examined at bedside States feeling well today Chest pain/Palpitations completely resolved Discussed with cardiology today Reports chronic dyspnea on exertion--unchanged Denies nausea, vomiting, dizziness, abdominal pain, fever, cough Discussed with cardiology Dr. Bolanos today Offers no other complaints Review of Systems Review of Systems: All systems reviewed & are unremarkable except as noted in HPI & below Physical Exam Physical Exam: Physical Exam: Vitals signs as noted above General Appearance:Moderately built and nourished, no apparent distress Head: normocephalic, Atraumatic Eyes: normal inspection, EOMI Neck: supple, Trachea midline Respiratory/Chest: Normal breath sounds, CTA, No accessory muscle use Cardiovascular: S1, S2, No murmur Abdomen/GI:Soft, Non tender, Bowel sounds present Extremities/Musculoskelatal:normal inspection, no edema Neurologic/Psych:AAOX3, grossly no focal neurological deficits Skin: normal color, warm Results & Data Results & Data ([facility]) Vital Signs (Past 12 Hours) Vital Signs Temp Pulse Pulse Resp BP BP Pulse Ox 04/17/20 08:15 36.5 C 84 16 110/60 04/17/20 03:55 36.7 C 80 18 104/63 97 04/16/20 23:47 69 04/16/20 23:44 36.9 C 70 16 118/77 98 04/16/20 23:21 62 20 107/63 98 04/16/20 23:00 99 04/16/20 22:30 93 H 14 112/58 L 99 04/16/20 22:00 69 20 122/73 98 Laboratory Results Short CBC 04/16/20 04/17/20 Range/Units 18:45 05:48 WBC 8.58 6.09 (4.8-10.8) K/uL Hgb 12.4 11.4 L (12.0-16.0) g/dL Hct 35.4 L 33.7 L (37-47) % Plt Count 314 286 (130-400) K/uL BMP 04/16/20 04/17/20 18:45 05:48 Sodium 139 139 Potassium 3.7 4.2 Chloride 108 H 111 H Carbon Dioxide 23 22 BUN 11 14 Creatinine 0.73 0.76 Glucose 95 98 Calcium 9.0 8.2 L Cardiac Enzymes 04/16/20 04/17/20 Range/Units 18:45 05:48 Troponin I < 0.015 < 0.015 (0-0.045) ng/ml Liver Function 04/16/20 Range/Units 18:45 Total Bilirubin 0.3 (0.2-1) mg/dl AST 11 L (15-37) U/L ALT 16 (12-78) U/L Alkaline Phosphatase 63 (45-117) U/L Albumin 4.0 (3.4-5.0) gm/dl
--- NOTE | 2020-04-17 10:04 | Discharge Summary ---
Date of Service April 17, 2020 Admission HPI Per Admitting Provider History obtained from patient and records. Medical history significant for paroxysmal VT/PVCs, history of vasodepressive syncope as per records. Last confinement October 2016 under OB service for labor induction. Patient transferred to [facility] due to need for cardiac monitoring. This morning, patient woke up feeling tired, drained of energy. No cough symptoms. 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 No tick bite exposure. Patient later noted transient chest tightness going to the right arm different from heartburn associated with bothersome palpitations. No headache, syncope/near syncopal events. No unusual stress at home or at work. Denies inordinate caffeine intake. Compliant with medications. Patient advised by summer sessions director's office to go to the ER. 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 Admission Exam Per Admitting Provider Physical Exam Physical Exam: GENERAL: Comfortable, pleasant, slightly anxious, no respiratory distress SKIN: Normal color, warm HEENT: Bespectacled, [place] palpebral conjunctivae, no ptosis, moist buccal mucosa NECK : Supple, no tenderness CHEST : CTA, no tenderness HEART : RRR, occasional ectopic beats , no obvious murmurs ABDOMEN: soft, nontender EXTREMITIES : No LE swelling/tenderness, no other conspicuous deformities noted NEUROLOGIC : Coherent, no facial asymmetry, no other gross focality Principal Diagnosis Atypical Chest Pain Discharge Data Allergies Allergy/AdvReac Type Severity Reaction Status Date / Time tramadol AdvReac Intermediate nausea Verified 04/16/20 19:07 Consultations 04/16/20 20:20 ED Decision to Admit Stat 04/16/20 23:44 Consult Cardiology Routine Procedures Performed CXR: No active disease in the chest. Hospital Course (1) Precordial chest pain: Atypical Chest Pain Likely secondary to DD: anxiety, Musculoskeletal CXR: No active disease in the chest. Previously evaluated by EP as outpatient Negative Cardiac Enzymes Showed no signs of acute ischemia Currently chest pain resolved Appreciate cardiology input Continue atenolol No rhythm issues on monitor Needs follow-up with [facility] cardiology as outpatient for further evaluation and management DVT Px: SCDs Code Status Full code Disposition: Plan to discharge home today Total Time Total Time Spent Total Time Spent (In Minutes): 27 minutes Discharge Plan Discharge Items Patient Disposition: Home - Self-Care Reason For Visit: CHEST PAIN Discharge Diagnosis: Atypical Chest Pain Condition on Discharge: Good Activity: As commented below Sexual Activity: Wait until after follow-up appointment Non-emergency contact: Primary Care Provider and Metal Fabrication Supervisor Call non-emergency contact if: you have any medication questions, your symptoms worsen, your pain is not controlled, your pain is worsening, your pain is unusual for you, your pain is concerning for you and you have a fever Follow-up/Referrals: Joselin Valdez MD [Primary Care Provider] - Diet: Heart Healthy Addtl Attending Provider Instructions: Follow-up with your primary care physician Dr. Valdez in 1 week as advised Follow-up with your summer sessions director Dr. Alvarez on 03/21/20 as scheduled Further cardiac evaluation as per your summer sessions director. Seek immediate medical attention if your symptoms reoccur or worsen Pending Studies at Discharge: No Stand-Alone Forms: My [id number], Smoking Cessation Medications and DC Order Prescriptions: Continued atenolol [Tenormin] 25 mg Tablet 25 mg PO BID Qty: 0 RF: 0 sodium chloride 1 gram Tablet 1,000 mg PO QAM Qty: 0 RF: 0 Nexplanon 68 mg Implant 1 implant SUBDERMAL UD RF: 0 Discharge Orders: Discharge Order (Routine); Ordered 04/17/20 Ordered By: Zack Houser/Other Patient Handouts: ED Chest Pain, Uncertain Cause Admission Data Admit Date/Time: 04/16/20 22:21 Attending Provider: Zack Argueta Admit Provider: Rod Dowell Primary Care Provider: Joselin Valdez Other Providers: Rod Dowell ; Nick Samuels ; Anton Arredondo ; Manuelito Bernal ; Christopher Alvarez ; Theodore Bolanos ; Eber Garcia ; Becca Beverly ; Freida Wood ; Heladio Tate Other Interventions: Discharge Summary Assessment (RN) Last Done: 04/17/20 10:12
--- NOTE | 2020-04-17 13:03 | Electrocardiogram Report ---
Test Reason : Blood Pressure : / mmHG Vent. Rate : 072 BPM Atrial Rate : 072 BPM P-R Int : 148 ms QRS Dur : 086 ms QT Int : 386 ms P-R-T Axes : 031 071 030 degrees QTc Int : 422 ms Poor data quality, interpretation may be adversely affected Normal sinus rhythm Normal ECG When compared with ECG of 17-DEC-2017 08:17, No significant change was found Confirmed by Cristopher Koroma ([id number]) on 04/17/2020 1:03:21 PM Referred By: REFERRED SELF Confirmed By:Cristopher Koroma
== END 2020-04-17 11:35 | disposition home or self-care (01) ==
LOC: ED 18:11 → 2S 18:11 → SUATTDRO 22:21 → 2S 23:21